=== PATIENT | male | born 1970 | race African-American/Black ===

== ENCOUNTER 2019-01-19 12:44 | Inpatient (IN) | payer OTHER | END 2019-01-24 08:44 | disposition home or self-care (01) | LOC: YASAS 12:44 → Y3N 15:46 ==

== ENCOUNTER 2022-01-10 21:02 | Inpatient (IN) | payer OTHER ==
[2022-01-10 21:37] VITALS: BMI 22.7
[2022-01-10] MEDS ORDERED: NALOXONE HCL 1 MG/ML ML IM ONE (22:03)
[2022-01-10] MEDS ORDERED: NALOXONE HCL 0.4 MG/ML VIAL ONE (22:10)
[2022-01-10] MEDS ORDERED: NALOXONE HCL 0.4 MG/ML VIAL IVPUSH ONE (22:25)
[2022-01-10 22:27] LABS: HEMATOCRIT 27.4 % (35.4-49); HEMOGLOBIN 8.9 GM/dL (11.7-16.9); MCH 27.3 pg (25.7-33.7); MCHC 32.4 g/dl (32.0-35.9); MEAN CELL VOLUME 84.3 fl (80-96); MEAN PLT VOLUME 7.5 fl (7.5-11.1); PLATELET COUNT 176 10^3/uL (134-434); RBC 3.26 M/mm3 (4.00-5.60); RDW 16.5 % (11.9-15.9); WHITE BLOOD COUNT 4.8 K/mm3 (4.0-10.0)
[2022-01-10 22:45] LABS: CHLORIDE 110 mmol/L (98-107); SODIUM 141 mmol/L (136-145)
[2022-01-10 22:47] LABS: CALCIUM 7.3 mg/dL (8.5-10.1)
[2022-01-10 22:48] LABS: ALBUMIN 1.5 g/dl (3.4-5.0); ANION GAP 8 MMOL/L (8-16); BLOOD UREA NITROGEN 71.6 mg/dL (7-18); CO2 22 mmol/L (21-32); GLUCOSE,RANDOM 94 mg/dL (74-106)
[2022-01-10 22:51] LABS: SGOT/AST 28 U/L (15-37); SGPT/ALT 16 U/L (13-61)
[2022-01-10 22:52] LABS: BILIRUBIN,TOTAL 0.3 mg/dL (0.2-1)
[2022-01-10 22:53] LABS: TOT PROT 6.5 g/dl (6.4-8.2)
[2022-01-10 22:54] LABS: ALK PHOS 94 U/L (45-117)
[2022-01-10 23:06] LABS: CREATININE 12.1 mg/dL (0.55-1.3)
[2022-01-10 23:10] LABS: N-TERMINAL BNP 108483.4 pg/ml (5-125)
[2022-01-10] MEDS ORDERED: ASPIRIN 81 MG CHEWABLE TABLETS PO ONE (23:32)
[2022-01-10] MEDS ORDERED: ASPIRIN 81 MG CHEWABLE TABLETS ONE (23:34)
[2022-01-10 23:50] LABS: ANISOCYTOSIS 0; MACROCYTOSIS 0
[2022-01-11 00:26] LABS: INR 0.95 (0.83-1.09); PROTHROMBIN TIME (PATIENT) 10.9 SEC (9.7-13.0)
[2022-01-11 00:29] LABS: ACTIVATED PTT 29.9 SECONDS (25.2-36.5)
[2022-01-11 00:53] LABS: EPI CELLS >36 /uL (0-25.1); HYALINE CASTS 1 /uL (0-3.1); PH,URINE 5.5 (5.0-8.0); URINE APPEARANCE CLEAR; URINE BACTERIA 30 /uL (0-1359); URINE BILIRUBIN NEGATIVE (NEGATIVE); URINE COLOR YELLOW; URINE GLUCOSE (UA) NEGATIVE (NEGATIVE); URINE KETONE NEGATIVE (NEGATIVE); URINE LEUK ESTERASE NEGATIVE (NEGATIVE); URINE NITRITE NEGATIVE (NEGATIVE); URINE PROTEIN 4+ (NEGATIVE); URINE RBC 146 /uL (0-23.9); URINE UROBILINOGEN 0.2 mg/dL (0.2-1.0); URINE WBC 49 /uL (0-25.8)
[2022-01-11 01:09] LABS: PHENCYCLIDINE,URINE NEGATIVE (NEGATIVE); URINE BARBITURATES NEGATIVE (NEGATIVE)
[2022-01-11 01:10] LABS: URINE BENZODIAZEPINES NEGATIVE (NEGATIVE)
[2022-01-11 01:15] LABS: COCAINE, UR POSITIVE (NEGATIVE); METHADONE, UR POSITIVE (NEGATIVE); OPIATES, URI POSITIVE (NEGATIVE); URINE AMPHETAMINES NEGATIVE (NEGATIVE)
[2022-01-11] MEDS ORDERED: FUROSEMIDE 40 MG/4 ML INJECTABLE VIAL IVPUSH ONE (01:40)
[2022-01-11] MEDS ORDERED: FUROSEMIDE 40 MG TABLET (FP) PO ONE (03:42)
[2022-01-11] MEDS ORDERED: cloNIDine HCL 0.1 MG TABLET PO PRN (03:51)
[2022-01-11] MEDS ORDERED: methaDONE HCL 10 MG TABLET (FOR DETOX USE ONLY) PO ONE (03:51)
[2022-01-11] MEDS ORDERED: LORazepam 2 MG/ML SDV VIAL IVPUSH PRN (03:53)
[2022-01-11] MEDS ORDERED: FUROSEMIDE 40 MG TABLET (FP) ONE (04:08)
[2022-01-11] MEDS ORDERED: methaDONE HCL 10 MG TABLET ONE (04:38)
[2022-01-11] MEDS ORDERED: HEPARIN NA (PORCINE) 5,000 UNITS/ML 1ML VIAL ONE ×2 (05:18→22:27)
[2022-01-11] MEDS ORDERED: cloNIDine HCL 0.1 MG TABLET ONE (05:18)
[2022-01-11] MEDS: HEPARIN NA (PORCINE) 5,000 UNITS/ML 1ML VIAL SQ SCH ×3 (07:00→22:36)
[2022-01-11 08:52] LABS: CHLORIDE 109 mmol/L (98-107); SODIUM 141 mmol/L (136-145)
[2022-01-11 08:53] LABS: CALCIUM 7.2 mg/dL (8.5-10.1)
[2022-01-11 08:54] LABS: ANION GAP 10 MMOL/L (8-16); CO2 22 mmol/L (21-32); GLUCOSE,RANDOM 77 mg/dL (74-106); MAGNESIUM 1.8 mg/dL (1.8-2.4)
[2022-01-11 08:57] LABS: PHOSPHOROUS 6.4 mg/dL (2.5-4.9)
[2022-01-11] MEDS ORDERED: SODIUM CHLORIDE 250 ML IV PRN (09:18)
[2022-01-11] MEDS ORDERED: amLODIPine BESYLATE 10 MG TABLET (FP) ONE (10:11)
[2022-01-11] MEDS: amLODIPine BESYLATE 10 MG TABLET (FP) PO SCH (10:15)
[2022-01-11 15:30] LABS: SYPHILIS W/ RPR CONF NON-REACTIVE (NONREACTIVE)
[2022-01-12] MEDS ORDERED: cloNIDine HCL 0.1 MG TABLET ONE (00:06)
[2022-01-12] MEDS: HEPARIN NA (PORCINE) 5,000 UNITS/ML 1ML VIAL SQ SCH ×3 (06:07→21:19)
[2022-01-12] MEDS: amLODIPine BESYLATE 10 MG TABLET (FP) PO SCH (10:02)
[2022-01-12] MEDS ORDERED: VANCOMYCIN/WATER FOR INJ (PEG) 1,000 MG/200 ML BAG IVPB ONE (13:15)
[2022-01-12 14:00] LABS: BASO % 1.4 % (0-2.0); EOS % 5.6 % (0-4.5); HEMATOCRIT 31.6 % (35.4-49); HEMOGLOBIN 10.2 GM/dL (11.7-16.9); LYMPH % 34.4 % (8-40); MCH 27.1 pg (25.7-33.7); MCHC 32.4 g/dl (32.0-35.9); MEAN CELL VOLUME 83.7 fl (80-96); MONO % 13.2 % (3.8-10.2); NEUT % 45.4 % (42.8-82.8); PLATELET COUNT 166 10^3/uL (134-434); RBC 3.78 M/mm3 (4.00-5.60); RDW 16.3 % (11.9-15.9); WHITE BLOOD COUNT 4.1 K/mm3 (4.0-10.0)
[2022-01-12 14:27] LABS: CHLORIDE 103 mmol/L (98-107); SODIUM 138 mmol/L (136-145)
[2022-01-12 14:29] LABS: ALBUMIN 1.4 g/dl (3.4-5.0); ANION GAP 11 MMOL/L (8-16); BLOOD UREA NITROGEN 53.4 mg/dL (7-18); CALCIUM 7.3 mg/dL (8.5-10.1); CO2 23 mmol/L (21-32); GLUCOSE,RANDOM 91 mg/dL (74-106); MAGNESIUM 1.8 mg/dL (1.8-2.4)
[2022-01-12 14:32] LABS: PHOSPHOROUS 5.2 mg/dL (2.5-4.9); SGOT/AST 29 U/L (15-37); SGPT/ALT 16 U/L (13-61)
[2022-01-12 14:34] LABS: BILIRUBIN,TOTAL 0.2 mg/dL (0.2-1); TOT PROT 6.5 g/dl (6.4-8.2)
[2022-01-12 14:35] LABS: ALK PHOS 84 U/L (45-117)
[2022-01-12 14:37] LABS: CREATININE 9.3 mg/dL (0.55-1.3)
[2022-01-12 15:50] LABS: ANISOCYTOSIS 0; MACROCYTOSIS 0
[2022-01-12] MEDS: hydrALAZINE HCL 10 MG TABLET PO SCH ×2 (16:44→21:19)
[2022-01-13] MEDS: HEPARIN NA (PORCINE) 5,000 UNITS/ML 1ML VIAL SQ SCH ×3 (06:27→22:58)
[2022-01-13] MEDS: hydrALAZINE HCL 10 MG TABLET PO SCH ×2 (06:27→13:00)
[2022-01-13] MEDS ORDERED: SODIUM CHLORIDE 250 ML IV PRN (07:06)
[2022-01-13 09:10] LABS: HEMOGLOBIN 9.8 GM/dL (11.7-16.9); MCH 27.4 pg (25.7-33.7); MCHC 32.8 g/dl (32.0-35.9); MEAN CELL VOLUME 83.5 fl (80-96); MEAN PLT VOLUME 8.4 fl (7.5-11.1); PLATELET COUNT 134 10^3/uL (134-434); RDW 16.2 % (11.9-15.9); WHITE BLOOD COUNT 4.9 K/mm3 (4.0-10.0)
[2022-01-13 09:13] LABS: CHLORIDE 103 mmol/L (98-107); SODIUM 135 mmol/L (136-145)
[2022-01-13 09:21] LABS: ALBUMIN 1.4 g/dl (3.4-5.0); ANION GAP 10 MMOL/L (8-16); BLOOD UREA NITROGEN 56.4 mg/dL (7-18); CO2 23 mmol/L (21-32); GLUCOSE,RANDOM 81 mg/dL (74-106)
[2022-01-13 09:24] LABS: SGOT/AST 28 U/L (15-37); SGPT/ALT 14 U/L (13-61)
[2022-01-13 09:25] LABS: BILIRUBIN,TOTAL 0.4 mg/dL (0.2-1); TOT PROT 6.2 g/dl (6.4-8.2)
[2022-01-13 09:27] LABS: ALK PHOS 75 U/L (45-117); CALCIUM 6.9 mg/dL (8.5-10.1); CREATININE 9.1 mg/dL (0.55-1.3)
[2022-01-13] MEDS ORDERED: methaDONE HCL 10 MG TABLET PO ONE (10:00)
[2022-01-13] MEDS ORDERED: methaDONE HCL 10 MG TABLET (FOR DETOX USE ONLY) PO ONE (10:00)
[2022-01-13 10:04] LABS: ANISOCYTOSIS 2+; MACROCYTOSIS 0; PLATELET ESTIMATE DECREASED
[2022-01-13] MEDS: amLODIPine BESYLATE 10 MG TABLET (FP) PO SCH (12:48)
[2022-01-13] MEDS ORDERED: hydrALAZINE HCL 10 MG TABLET PO ONE (16:47)
[2022-01-13] MEDS: hydrALAZINE HCL 25 MG TABLET (FP) PO SCH (22:58)
[2022-01-14] MEDS: hydrALAZINE HCL 25 MG TABLET (FP) PO SCH ×3 (06:45→21:56)
[2022-01-14] MEDS: HEPARIN NA (PORCINE) 5,000 UNITS/ML 1ML VIAL SQ SCH ×3 (06:46→21:55)
[2022-01-14 07:30] LABS: HEMATOCRIT 29.6 % (35.4-49); HEMOGLOBIN 9.7 GM/dL (11.7-16.9); MCH 27.4 pg (25.7-33.7); MCHC 32.6 g/dl (32.0-35.9); MEAN PLT VOLUME 7.6 fl (7.5-11.1); PLATELET COUNT 117 10^3/uL (134-434); RBC 3.52 M/mm3 (4.00-5.60); WHITE BLOOD COUNT 5.2 K/mm3 (4.0-10.0)
[2022-01-14 07:50] LABS: ALBUMIN 1.4 g/dl (3.4-5.0); BLOOD UREA NITROGEN 49.8 mg/dL (7-18)
[2022-01-14 07:51] LABS: MAGNESIUM 1.7 mg/dL (1.8-2.4)
[2022-01-14 07:53] LABS: CREATININE 7.4 mg/dL (0.55-1.3); PHOSPHOROUS 3.9 mg/dL (2.5-4.9)
[2022-01-14 07:55] LABS: BILIRUBIN,TOTAL 0.3 mg/dL (0.2-1); TOT PROT 6.1 g/dl (6.4-8.2)
[2022-01-14] MEDS ORDERED: MAGNESIUM SULF 50% (8.12 MEQ/2 ML-1 GM VIAL) IVPB ONE (08:58)
[2022-01-14 10:35] LABS: ANISOCYTOSIS 0; MACROCYTOSIS 0; PLATELET ESTIMATE DECREASED
[2022-01-14] MEDS: amLODIPine BESYLATE 10 MG TABLET (FP) PO SCH (10:43)
[2022-01-14] MEDS ORDERED: SODIUM CHLORIDE 250 ML IV PRN (11:26)
[2022-01-14] MEDS ORDERED: VANCOMYCIN/WATER FOR INJ (PEG) 1,000 MG/200 ML BAG IVPB ONE (13:43)
[2022-01-14] MEDS ORDERED: hydrALAZINE HCL 20 MG/ML VIAL IVPUSH ONE (22:53)
[2022-01-14] MEDS: MELATONIN 5 MG TABLETS PO PRN (23:12)
[2022-01-15] MEDS: HEPARIN NA (PORCINE) 5,000 UNITS/ML 1ML VIAL SQ SCH ×3 (05:27→21:39)
[2022-01-15] MEDS: hydrALAZINE HCL 25 MG TABLET (FP) PO SCH ×3 (05:27→21:39)
[2022-01-15 08:25] VITALS: RESP 18
[2022-01-15] MEDS ORDERED: methaDONE HCL 10 MG TABLET PO ONE (10:00)
[2022-01-15 10:49] LABS: HEMATOCRIT 30.1 % (35.4-49); MCH 27.8 pg (25.7-33.7); MCHC 33.3 g/dl (32.0-35.9); MEAN CELL VOLUME 83.5 fl (80-96); MEAN PLT VOLUME 8.2 fl (7.5-11.1); PLATELET COUNT 94 10^3/uL (134-434); WHITE BLOOD COUNT 5.9 K/mm3 (4.0-10.0)
[2022-01-15 10:55] LABS: ALBUMIN 1.5 g/dl (3.4-5.0); BLOOD UREA NITROGEN 54.2 mg/dL (7-18); CALCIUM 7.4 mg/dL (8.5-10.1)
[2022-01-15 10:58] LABS: CREATININE 7.4 mg/dL (0.55-1.3)
[2022-01-15 10:59] LABS: PHOSPHOROUS 4.4 mg/dL (2.5-4.9)
[2022-01-15 11:00] LABS: BILIRUBIN,TOTAL 0.2 mg/dL (0.2-1); TOT PROT 6.8 g/dl (6.4-8.2)
[2022-01-15] MEDS: amLODIPine BESYLATE 10 MG TABLET (FP) PO SCH (11:13)
[2022-01-15 12:03] LABS: ANISOCYTOSIS 0; HELMET CELLS 0; HOWELL-JOLLY BODIES 0; MACROCYTOSIS 0; OVALOCYTE 0; ROULEAU 0; SICKELED CELLS 0; TARGET CELLS 0; TEAR DROP CELLS 0; TOXIC GRANULATION 0
[2022-01-15] MEDS: MELATONIN 5 MG TABLETS PO PRN (21:39)
[2022-01-16] MEDS: hydrALAZINE HCL 25 MG TABLET (FP) PO SCH ×2 (06:15→13:30)
[2022-01-16] MEDS: HEPARIN NA (PORCINE) 5,000 UNITS/ML 1ML VIAL SQ SCH ×2 (06:16→13:30)
[2022-01-16] MEDS ORDERED: ACETAMINOPHEN 325 MG TABLET (FP) PO PRN (08:39)
[2022-01-16 09:02] VITALS: BP 152/102; PULSE 98; TEMP 97.8
[2022-01-16] MEDS: amLODIPine BESYLATE 10 MG TABLET (FP) PO SCH (09:05)
[2022-01-16 09:16] LABS: ALBUMIN 1.6 g/dl (3.4-5.0); CALCIUM 7.7 mg/dL (8.5-10.1)
[2022-01-16 09:20] LABS: CREATININE 6.5 mg/dL (0.55-1.3); PHOSPHOROUS 4.5 mg/dL (2.5-4.9)
[2022-01-16 09:21] LABS: BILIRUBIN,TOTAL 0.2 mg/dL (0.2-1)
[2022-01-16 09:24] LABS: TOT PROT 6.8 g/dl (6.4-8.2)
[2022-01-16 12:15] LABS: HEMATOCRIT 30.9 % (35.4-49); MCH 27.5 pg (25.7-33.7); MCHC 32.3 g/dl (32.0-35.9); MEAN CELL VOLUME 85.2 fl (80-96); PLATELET COUNT 96 10^3/uL (134-434); RBC 3.63 M/mm3 (4.00-5.60); RDW 16.6 % (11.9-15.9); WHITE BLOOD COUNT 5.7 K/mm3 (4.0-10.0)
[2022-01-16 13:28] LABS: ANISOCYTOSIS 0; MACROCYTOSIS 0; PLATELET ESTIMATE DECREASED
[2022-01-16 15:09] LABS: ATYPICAL pANCA <1:20 titer (Neg:<1:20); C-ANCA <1:20 titer (Neg:<1:20)
== END 2022-01-16 13:34 | disposition left against medical advice (07) | DRG 890 ==
LOC: JER 21:02 → JERBED 23:37 → J4W 01-12 06:04
PROVIDERS: ADMIT Internal Medicine; ATTEND Internal Medicine
DX: N17.9 Acute kidney failure, unspecified (principal); U07.1 COVID-19; R78.81 Bacteremia; I13.0 Hypertensive heart and chronic kidney disease with heart failure and stage 1 through stage 4 chronic kidney disease, or unspecified chronic kidney disease; G92.8 Other toxic encephalopathy; M62.82 Rhabdomyolysis; F10.231 Alcohol dependence with withdrawal delirium; E87.70 Fluid overload, unspecified; B20 Human immunodeficiency virus [HIV] disease; E88.09 Other disorders of plasma-protein metabolism, not elsewhere classified; I50.9 Heart failure, unspecified; F11.10 Opioid abuse, uncomplicated; F12.90 Cannabis use, unspecified, uncomplicated; F14.10 Cocaine abuse, uncomplicated; F17.210 Nicotine dependence, cigarettes, uncomplicated; R80.9 Proteinuria, unspecified; D64.9 Anemia, unspecified; R94.31 Abnormal electrocardiogram [ECG] [EKG]; B95.62 Methicillin resistant Staphylococcus aureus infection as the cause of diseases classified elsewhere; F41.9 Anxiety disorder, unspecified; F19.90 Other psychoactive substance use, unspecified, uncomplicated; N18.9 Chronic kidney disease, unspecified; Z91.14 Patient's other noncompliance with medication regimen
CPT/HCPCS: 36415; 71045-TC-FY; 76937; 80048; 80053; 80307; 81003; 82550; 82570; 83520; 83735; 83880; 84100; 84156; 84300; 84484; 85025; 85610; 85730; 86038; 86140; 86160; 86256; 86359; 86360; 86780; 86803; 87040; 87186; 87340; 87522; 93005; 93010; 93306-TC; 99285-25; G0480; J1644